=== PATIENT | female | born 1990 | race African-American/Black ===

== ENCOUNTER 2017-04-01 09:47 | Emergency (ER) | payer MEDICAID ==
[~2017-04-01] VITALS: Ht 154.9 cm; Wt 54.0 kg
[2017-04-01 11:46] VITALS: BP 123/78
== END 2017-04-01 11:47 | disposition home or self-care (01) ==
LOC: ER 10:54
DX: H00.011 Hordeolum externum right upper eyelid (principal); R42 Dizziness and giddiness; R51 Headache; F17.200 Nicotine dependence, unspecified, uncomplicated; F12.10 Cannabis abuse, uncomplicated
CPT/HCPCS: 81025; 82962; 99283

== ENCOUNTER 2017-08-17 09:47 | Emergency (ER) | payer SELFPAY ==
[~2017-08-17] VITALS: Ht 154.9 cm; Wt 53.0 kg
[2017-08-17] MEDS ORDERED: KETOROLAC 30MG/ML VIAL IM ONE (12:45)
[2017-08-17 13:08] VITALS: BP 114/50
== END 2017-08-17 13:42 | disposition home or self-care (01) ==
LOC: ER 10:17
DX: G44.209 Tension-type headache, unspecified, not intractable (principal); F17.210 Nicotine dependence, cigarettes, uncomplicated; F12.90 Cannabis use, unspecified, uncomplicated
CPT/HCPCS: 81025; 96372; 99283; J1885